=== PATIENT | female | born 1990 | race Caucasian/White ===

== ENCOUNTER 2023-07-18 12:28 | Emergency (ER) | payer MEDICAID ==
[~2023-07-18] VITALS: Ht 154.9 cm; Wt 75.6 kg
[2023-07-18] MEDS: TETRACAINE HCL 0.5% OPTH(EYE) SOLN 4ML EACHEYE ONE (15:03)
[2023-07-18] MEDS: FLUORESCEIN SOD OPTH TEST STRIP EACHEYE ONE (15:03)
[2023-07-18] MEDS ORDERED: GENT0.3S10 EACHEYE (15:49)
[2023-07-18] MEDS ORDERED: CARB0.5D8 EACHEYE (15:49)
[2023-07-18 15:58] VITALS: BP 129/89; PULSE 72; RESP 20; TEMP 98; O2SAT 100
== END 2023-07-18 16:02 | disposition home or self-care (01) ==
LOC: ER 12:30
DX: H57.13 Ocular pain, bilateral (principal)

== ENCOUNTER 2023-09-02 18:38 | Emergency (ER) | payer MEDICAID ==
[~2023-09-02] VITALS: Ht 154.9 cm; Wt 77.5 kg
[~2023-09-02 18:38] MED LIST: CARB0.5D8 EACHEYE; GENT0.3S10 EACHEYE
[2023-09-02 19:06] LABS: Basophils # (auto) 0.1 10 ^3/uL (0-0.2); Eosinophils # (auto) 0.2 10 ^3/uL (0-0.8); Hemoglobin 10.3 g/dL (12.2-16.2); Lymphocytes # (auto) 2.6 10 ^3/uL (0.4-5.4); Monocytes # (auto) 0.6 10 ^3/uL (0-1.3)
[2023-09-02 19:08] LABS: Basophils % (auto) 0.7 % (0.0-2.0); Eosinophils % (auto) 1.5 % (0.0-7.0); Hematocrit 32.4 % (36.0-46.0); Lymphocytes % (auto) 25.5 % (10.0-50.0); Mean Corpuscular Hemoglobin 19.6 pg (28.0-32.0); Mean Corpuscular Hgb Conc. 31.8 g/dL (32.0-36.0); Mean Corpuscular Volume 61.6 fL (80.0-100.0); Monocytes % (auto) 5.8 % (0.0-12.0); Neutrophils # (auto) 6.9 10 ^3/uL (1.6-8.6); Neutrophils % (auto) 66.5 % (37.0-80.0); Red Blood Cells 5.26 10^6/uL (4.0-5.20); White Blood Cell 10.4 10^3/uL (4.4-10.8)
[2023-09-02 19:22] LABS: INR 0.99 (0.9-1.15); Partial Thromboplastin Time 26.1 SEC (24.5-34.5); Prothrombin Time 10.5 sec (9.3-11.8)
[2023-09-02 19:26] LABS: Alanine Aminotransferase 43 U/L (7-40); Albumin 4.8 g/dL (3.2-4.8); Alkaline Phosphatase 79 U/L (46-116); Anion Gap 8 (5-15); Aspartate Aminotransferase 22 U/L (13-40); BUN/Creatinine Ratio 19.4 (10.0-20.0); Blood Urea Nitrogen 14 mg/dL (9-23); Calcium 9.8 mg/dL (8.7-10.4); Carbon Dioxide 23 mmol/L (20-30); Chloride 108 mmol/L (98-107); Glucose 122 mg/dL (74-106); Potassium 4.2 mmol/L (3.5-5.1); Sodium 139 mmol/L (136-145)
[2023-09-02 19:27] LABS: Anisocytosis Slight; Bilirubin, Total 0.4 mg/dL (0.2-1.0); Hypochromia Marked; Platelet Estimate Adequate; Total Protein 7.1 g/dL (5.7-8.2)
[2023-09-02 19:32] LABS: Amphetamine Screen, Urine Neg (NEGATIVE); Barbiturate Scree,Urine Neg (NEGATIVE); Benzodiazephine Screen, Urine Neg (NEGATIVE); Cannabinoid Screen, Urine Neg (NEGATIVE); Cocaine Screen, Urine Neg (NEGATIVE); Opiate Scree,Urine Neg (NEGATIVE); Phencyclidine Screen, Urine Neg (NEGATIVE)
[2023-09-02 20:57] VITALS: BP 128/82; PULSE 87; RESP 16; TEMP 98.2; O2SAT 99
== END 2023-09-02 20:57 | disposition home or self-care (01) ==
LOC: ER 18:43
DX: F41.9 Anxiety disorder, unspecified (principal); R00.2 Palpitations; Z79.899 Other long term (current) drug therapy
CPT/HCPCS: 36415; 71045; 80053; 80307; 81025; 84484; 85025; 85379; 85610; 85730; 93005